=== PATIENT | female | born 1940 | race Caucasian/White ===

== ENCOUNTER → 2016-10-22 | Outpatient (CLI) | payer MEDICARE, BC ==
[~2016-10-22] MED LIST: AMOXICILLIN 50500 MG PO; ASPIRIN E.C. 8181 MG PO; CALCIUM 500 + D1 TA1 PO; CARDIZEM CD 18180 MG PO; COQ(10)1010 MG PO; CORTISPORIN EAR10 M1 OT; FISH OIL CONC1000 MG PO; FISH OIL CONCEN1 SG1 PO; GLUCOSAMINE & C1 CA1 PO; LIPITOR 40MG TA40 MG PO; LUTEIN6 MG; MULTIPLE VITAMI1 TAB PO; NEXIUM 40MG40 MG PO; PRAVACHOL 40MG40 MG PO; PREDNISONE20 MG PO; PREMARIN 0.60.625 M1 PO; PROMETRIUM100 MG PO; VITAMIN D31000 IU PO
== END ==
LOC: MC.RAD 10:58
DX: Z12.31 Encounter for screening mammogram for malignant neoplasm of breast (principal)

== ENCOUNTER → 2018-03-30 | Outpatient (CLI) | payer MEDICARE, BC ==
[~2018-03-30] MED LIST changes: +CEFTIN 250250 MG/TAB PO; +COENZYME Q-10100 M1 PO; -COQ(10)1010 MG PO; +ELIQUIS 5MG PO; -FISH OIL CONCEN1 SG1 PO; +FISH OIL CONCEN1 SG2 PO; +MULTAQ400 MG PO
== END ==
LOC: MC.RAD 09:17
DX: Z12.31 Encounter for screening mammogram for malignant neoplasm of breast (principal)

== ENCOUNTER → 2018-07-29 | Outpatient (CLI) | payer MEDICARE, BC | LOC: COL.VAS 09:59 | DX: I50.22 Chronic systolic (congestive) heart failure (principal); I27.0 Primary pulmonary hypertension; I48.91 Unspecified atrial fibrillation; I08.2 Rheumatic disorders of both aortic and tricuspid valves ==

== ENCOUNTER → 2020-03-14 | Outpatient (CLI) | payer MEDICARE, BC | LOC: COL.CARD 01-17 10:00 | DX: G51.4 Facial myokymia (principal) ==

== ENCOUNTER → 2020-10-15 | Outpatient (CLI) | payer MEDICARE, BC | LOC: MC.RAD 11:04 | DX: Z12.31 Encounter for screening mammogram for malignant neoplasm of breast (principal) ==

== ENCOUNTER 2021-06-25 07:33 | Day surgery (SDC) | payer MEDICARE, BC ==
[~2021-06-25] VITALS: Ht 157.5 cm; Wt 77.7 kg
[2021-06-25 08:18] VITALS: BP 141/75; PULSE 69; TEMP 97.1
[2021-06-25] MEDS ORDERED: ELIQUIS 2.5 PO (08:23)
[2021-06-25] MEDS ORDERED: ASPIRIN E.C. 8181 MG PO (08:25)
[2021-06-25] MEDS ORDERED: NATURE'S BLE1000 MCG (08:25)
[2021-06-25] MEDS ORDERED: CALCIUM 600MG+D1 TAB PO (08:26)
[2021-06-25] MEDS ORDERED: CARTIA XT120 MG PO (08:26)
[2021-06-25] MEDS ORDERED: THE MEDICINE S200 M2 PO (08:29)
[2021-06-25] MEDS ORDERED: OMEGA-3 1000 MG1 CAP PO (08:30)
[2021-06-25] MEDS ORDERED: CHONDROITIN/GLU1 SGL (08:31)
[2021-06-25] MEDS ORDERED: LUTEIN20 M1 PO (08:31)
[2021-06-25] MEDS ORDERED: [UNRECOGNIZED DRUG - OTHER] OU (08:32)
[2021-06-25 09:20] VITALS: BP 148/73; PULSE 69; TEMP 97.5
--- NOTE | 2021-06-25 09:20 | NUR ---
pt to [facility] via cart from endo room having EGD and Colonoscopy. pt is awake and alert, walked to chair, has no c/o, call light in reach, took drink and snack
[2021-06-25 09:35] VITALS: BP 150/78; PULSE 60
--- NOTE | 2021-06-25 09:35 | NUR ---
con't same, sits up in chair, Dr into talk with pt on results of procedures
[2021-06-25 09:50] VITALS: BP 155/81; PULSE 67
--- NOTE | 2021-06-25 10:00 | NUR ---
iv d'cd intact, reviewed discharge inst. with pt on diet, activity and followup, pt to avoid hot foods for 4 hours with verbal understanding. pt dressed self up in room and discharged at 1020 via w/c to car with mary ann
== END 2021-06-25 10:40 | disposition home or self-care (01) ==
LOC: SDCO 07:33
DX: Z12.11 Encounter for screening for malignant neoplasm of colon (principal); D12.6 Benign neoplasm of colon, unspecified; K29.30 Chronic superficial gastritis without bleeding; K21.9 Gastro-esophageal reflux disease without esophagitis; K44.9 Diaphragmatic hernia without obstruction or gangrene; K64.0 First degree hemorrhoids; K57.30 Diverticulosis of large intestine without perforation or abscess without bleeding; I48.91 Unspecified atrial fibrillation; I10 Essential (primary) hypertension; I48.0 Paroxysmal atrial fibrillation; I48.3 Typical atrial flutter; E66.9 Obesity, unspecified; Z79.899 Other long term (current) drug therapy; Z86.010 Personal history of colon polyps; Z85.44 Personal history of malignant neoplasm of other female genital organs; Z68.39 Body mass index [BMI] 39.0-39.9, adult
CPT/HCPCS: J2704; J7030

== ENCOUNTER 2021-07-10 11:01 | Inpatient (IN) | payer MEDICARE, BC ==
[~2021-07-10] VITALS: Ht 154.9 cm; Wt 82.1 kg
[~2021-07-10 11:01] MED LIST changes: +CALCIUM 600MG+D1 TAB PO; +CARTIA XT120 MG PO; +CHONDROITIN/GLU1 SGL; +ELIQUIS 2.5 PO; +LUTEIN20 M1 PO; +NATURE'S BLE1000 MCG; +OMEGA-3 1000 MG1 CAP PO; +THE MEDICINE S200 M2 PO; +[UNRECOGNIZED DRUG - OTHER] OU
[2021-07-10 11:30] LABS: BASO # 0.1 K/mm3 (0.0-0.2); BASO % 0.8 % (0.0-2.0); EOS # 0.2 K/mm3 (0.0-0.7); EOS % 1.5 % (0.0-4.0); GRAN # 5.6 K/mm3 (1.4-6.5); HEMATOCRIT 47.4 % (37.0-47.0); HEMOGLOBIN 15.5 g/dl (12.5-16.0); LYMPH # 3.9 K/mm3 (1.2-3.4); LYMPH % 37.5 % (20.0-51.0); MEAN CELL VOLUME 92 fl (80.0-100.0); MEAN CORPUSCULAR HEMOGLOBIN 30 pg (27-31); MEAN CORPUSCULAR HGB CONC 33 g/dl (33.0-37.0); MEAN PLATELET VOLUME 10.2 fl (7.4-10.4); MONO # 0.7 K/mm3 (0.1-0.6); PLATELET COUNT 402 K/mm3 (130-400); RED BLOOD COUNT 5.16 M/mm3 (4.10-5.30); REDCELL DISTRIBUTION WIDTH-CV 15.4 % (11.5-14.5)
[2021-07-10 11:34] LABS: INR 1.2 (0.8-3.0); PROTHROMBIN TIME 13.8 SECONDS (9.7-12.8)
[2021-07-10 11:45] LABS: ALBUMIN 4.2 gm/dL (3.4-4.8); BILIRUBIN,TOTAL 0.6 mg/dL (0.2-1.2); CALCIUM 9.9 mg/dL (8.4-10.2); CREATININE, serum 0.84 mg/dL (0.57-1.11); POTASSIUM 4.3 mmol/L (3.5-4.5); TOTAL PROTEIN 7.9 gm/dL (6.2-8.1)
[2021-07-10 11:50] LABS: TROPONIN-I 0.02 ng/mL (0.00-0.033)
[2021-07-11] VITALS (8 sets, daily range): BP systolic 97–149; BP diastolic 43–80; PULSE 58–92; TEMP 97.6–98.2
[2021-07-11 07:09] LABS: CALCIUM 8.8 mg/dL (8.4-10.2); CREATININE, serum 0.77 mg/dL (0.57-1.11); POTASSIUM 3.8 mmol/L (3.5-4.5)
[2021-07-11 07:11] LABS: BASO # 0.1 K/mm3 (0.0-0.2); BASO % 0.7 % (0.0-2.0); EOS # 0.3 K/mm3 (0.0-0.7); EOS % 4.2 % (0.0-4.0); GRAN # 3.9 K/mm3 (1.4-6.5); GRAN % 47.9 % (42.2-75.2); HEMATOCRIT 39.2 % (37.0-47.0); HEMOGLOBIN 12.7 g/dl (12.5-16.0); LYMPH # 3.2 K/mm3 (1.2-3.4); LYMPH % 39.6 % (20.0-51.0); MEAN CELL VOLUME 94 fl (80.0-100.0); MEAN CORPUSCULAR HEMOGLOBIN 30 pg (27-31); MEAN CORPUSCULAR HGB CONC 32 g/dl (33.0-37.0); MEAN PLATELET VOLUME 10.8 fl (7.4-10.4); MONO # 0.6 K/mm3 (0.1-0.6); MONO % 7.5 % (1.7-9.3); PLATELET COUNT 315 K/mm3 (130-400); RED BLOOD COUNT 4.19 M/mm3 (4.10-5.30); REDCELL DISTRIBUTION WIDTH-CV 15.6 % (11.5-14.5)
[2021-07-11] MEDS ORDERED: ELIQUIS 5MG PO (13:48)
[2021-07-11] MEDS ORDERED: NORVASC2.5 MG PO (16:20)
[2021-07-11] MEDS ORDERED: MULTAQ400 MG PO (16:40)
== END 2021-07-11 17:39 | disposition home or self-care (01) | DRG 310 ==
LOC: COL.ER 11:01 → MEDICAL 18:00
PROVIDERS: Physician Assistant; ADMIT Internal Medicine
PROC: 5A2204Z Restoration of Cardiac Rhythm, Single (ICD-10-PCS; principal; 2021-07-11)
DX: I48.0 Paroxysmal atrial fibrillation (principal); I10 Essential (primary) hypertension; E78.5 Hyperlipidemia, unspecified; I08.0 Rheumatic disorders of both mitral and aortic valves; Z91.040 Latex allergy status; Z79.01 Long term (current) use of anticoagulants; Z23 Encounter for immunization
CPT/HCPCS: 99223-AI; 99239; G0378; J2704; J7030

== ENCOUNTER → 2021-09-17 | Outpatient (CLI) | payer MEDICARE, BC ==
[~2021-09-17] MED LIST changes: +NORVASC2.5 MG PO
== END ==
LOC: COL.VAS 11:29
DX: I08.3 Combined rheumatic disorders of mitral, aortic and tricuspid valves (principal); I27.20 Pulmonary hypertension, unspecified

== ENCOUNTER 2022-08-16 10:14 | Inpatient (IN) | payer MEDICARE, BC ==
[2022-08-16] VITALS (19 sets, daily range): BP systolic 103–151; BP diastolic 57–105; PULSE 92–126; TEMP 97.3–98.8
[~2022-08-16] VITALS: Ht 154.9 cm; Wt 77.3 kg
[2022-08-16] MEDS ORDERED: CARDIZEM CD 12120 MG PO (11:04)
[2022-08-16 11:15] LABS: BASO # 0.1 K/mm3 (0.0-0.2); BASO % 0.8 % (0.0-2.0); EOS # 0.2 K/mm3 (0.0-0.7); GRAN # 3.7 K/mm3 (1.4-6.5); GRAN % 47.7 % (42.2-75.2); HEMATOCRIT 43.8 % (37.0-47.0); HEMOGLOBIN 14.7 g/dl (12.5-16.0); LYMPH # 3.3 K/mm3 (1.2-3.4); LYMPH % 42.2 % (20.0-51.0); MEAN CELL VOLUME 90 fl (80.0-100.0); MEAN CORPUSCULAR HEMOGLOBIN 30 pg (27-31); MEAN CORPUSCULAR HGB CONC 34 g/dl (33.0-37.0); MEAN PLATELET VOLUME 10.1 fl (7.4-10.4); MONO # 0.5 K/mm3 (0.1-0.6); MONO % 6.2 % (1.7-9.3); PLATELET COUNT 398 K/mm3 (130-400); RED BLOOD COUNT 4.87 M/mm3 (4.10-5.30); REDCELL DISTRIBUTION WIDTH-CV 14.7 % (11.5-14.5)
[2022-08-16 11:19] LABS: ALANINE AMINOTRANSFERASE 15 U/L (0-55); ALBUMIN 3.9 gm/dL (3.4-4.8); ALKALINE PHOSPHATASE 64 U/L (40-150); ANION GAP 10 mmol/L (7-16); AST,SGOT 7 U/L (5-34); BILIRUBIN,TOTAL 0.6 mg/dL (0.2-1.2); BLOOD UREA NITROGEN 18 mg/dL (10-20); CALCIUM 9.5 mg/dL (8.4-10.2); CARBON DIOXIDE 22 mmol/L (23-31); CHLORIDE 106 mmol/L (98-107); CREATININE, serum 0.92 mg/dL (0.57-1.11); GLUCOSE 143 mg/dL (70-99); POTASSIUM 4.3 mmol/L (3.5-4.5); SODIUM 138 mmol/L (136-145); TOTAL PROTEIN 7.3 gm/dL (6.2-8.1)
[2022-08-16 11:27] LABS: INR 1.4 (0.8-3.0); PROTHROMBIN TIME 16.2 SECONDS (9.7-12.8)
[2022-08-16 11:29] LABS: TROPONIN-I < 0.010 ng/mL (0.00-0.033)
[2022-08-16] MEDS ORDERED: OCUVITE1 TA1 PO (13:43)
[2022-08-16] MEDS ORDERED: ZYRTEC5 MG PO (13:44)
[2022-08-16 19:01] LABS: COLLECTION METHOD CLEAN CATCH
[2022-08-16 19:20] LABS: SQUAMOUS EPITHELIAL 0-2 /hpf (0-10); URINE BACTERIA None Seen /hpf (NONE SEEN); URINE RBC 0-2 /hpf (0-2)
[2022-08-16 19:21] LABS: URINE APPEARANCE Clear (CLEAR/HAZY); URINE BLOOD Negative (NEGATIVE); URINE COLOR Yellow (YELLOW); URINE GLUCOSE Negative (NEGATIVE); URINE KETONE Negative (NEGATIVE); URINE NITRATE Negative (NEGATIVE); URINE PROTEIN(semi-quant) Negative (NEGATIVE); URINE UROBILINOGEN 0.2 E.U/dL (0.2-1.0)
[2022-08-17] VITALS (17 sets, daily range): BP systolic 113–136; BP diastolic 44–86; PULSE 47–124; TEMP 97.4–98.6
[2022-08-17 06:37] LABS: CALCIUM 8.8 mg/dL (8.4-10.2); CREATININE, serum 0.75 mg/dL (0.57-1.11); MAGNESIUM 1.9 mg/dL (1.6-2.6); POTASSIUM 4.1 mmol/L (3.5-4.5)
[2022-08-17 06:38] LABS: BASO # 0.1 K/mm3 (0.0-0.2); BASO % 0.5 % (0.0-2.0); EOS # 0.3 K/mm3 (0.0-0.7); EOS % 2.4 % (0.0-4.0); GRAN # 8.9 K/mm3 (1.4-6.5); GRAN % 69.8 % (42.2-75.2); HEMATOCRIT 41.6 % (37.0-47.0); HEMOGLOBIN 13.4 g/dl (12.5-16.0); LYMPH # 2.6 K/mm3 (1.2-3.4); LYMPH % 20.6 % (20.0-51.0); MEAN CORPUSCULAR HEMOGLOBIN 31 pg (27-31); MEAN CORPUSCULAR HGB CONC 32 g/dl (33.0-37.0); MEAN PLATELET VOLUME 10.2 fl (7.4-10.4); MONO # 0.8 K/mm3 (0.1-0.6); MONO % 6.4 % (1.7-9.3); PLATELET COUNT 337 K/mm3 (130-400); RED BLOOD COUNT 4.39 M/mm3 (4.10-5.30); REDCELL DISTRIBUTION WIDTH-CV 15.1 % (11.5-14.5)
[2022-08-17 06:40] LABS: MEAN CELL VOLUME 95 fl (80.0-100.0)
[2022-08-18] VITALS (15 sets, daily range): BP systolic 116–161; BP diastolic 47–80; PULSE 56–73; TEMP 97.6–98.7
[2022-08-18 06:31] LABS: BASO # 0.1 K/mm3 (0.0-0.2); BASO % 0.6 % (0.0-2.0); EOS # 0.2 K/mm3 (0.0-0.7); EOS % 2.9 % (0.0-4.0); GRAN # 4.5 K/mm3 (1.4-6.5); GRAN % 53.1 % (42.2-75.2); HEMATOCRIT 38.8 % (37.0-47.0); HEMOGLOBIN 12.8 g/dl (12.5-16.0); LYMPH # 2.9 K/mm3 (1.2-3.4); LYMPH % 34.5 % (20.0-51.0); MEAN CELL VOLUME 94 fl (80.0-100.0); MEAN CORPUSCULAR HEMOGLOBIN 31 pg (27-31); MEAN CORPUSCULAR HGB CONC 33 g/dl (33.0-37.0); MEAN PLATELET VOLUME 10.7 fl (7.4-10.4); MONO # 0.7 K/mm3 (0.1-0.6); MONO % 8.8 % (1.7-9.3); PLATELET COUNT 318 K/mm3 (130-400); RED BLOOD COUNT 4.15 M/mm3 (4.10-5.30)
[2022-08-18 06:51] LABS: CALCIUM 8.6 mg/dL (8.4-10.2); CREATININE, serum 0.72 mg/dL (0.57-1.11); POTASSIUM 4.1 mmol/L (3.5-4.5)
[2022-08-18 12:00] LABS: INR 1.4 (0.8-3.0); PROTHROMBIN TIME 16.4 SECONDS (9.7-12.8)
[2022-08-19 03:31] VITALS: BP 138/55; PULSE 64; TEMP 98.4
[2022-08-19 06:31] LABS: BASO # 0.1 K/mm3 (0.0-0.2); BASO % 0.8 % (0.0-2.0); EOS # 0.3 K/mm3 (0.0-0.7); EOS % 4.1 % (0.0-4.0); GRAN # 3.5 K/mm3 (1.4-6.5); GRAN % 47.7 % (42.2-75.2); HEMOGLOBIN 11.6 g/dl (12.5-16.0); LYMPH # 2.9 K/mm3 (1.2-3.4); LYMPH % 38.9 % (20.0-51.0); MEAN CELL VOLUME 95 fl (80.0-100.0); MEAN CORPUSCULAR HEMOGLOBIN 31 pg (27-31); MEAN CORPUSCULAR HGB CONC 32 g/dl (33.0-37.0); MEAN PLATELET VOLUME 11.4 fl (7.4-10.4); MONO # 0.6 K/mm3 (0.1-0.6); MONO % 8.4 % (1.7-9.3); PLATELET COUNT 259 K/mm3 (130-400); RED BLOOD COUNT 3.79 M/mm3 (4.10-5.30); REDCELL DISTRIBUTION WIDTH-CV 15.1 % (11.5-14.5)
[2022-08-19 06:33] LABS: HEMATOCRIT 35.8 % (37.0-47.0)
[2022-08-19 06:46] LABS: CALCIUM 8.6 mg/dL (8.4-10.2); CREATININE, serum 0.75 mg/dL (0.57-1.11); POTASSIUM 4.1 mmol/L (3.5-4.5)
[2022-08-19 07:49] VITALS: BP 151/66; PULSE 64; TEMP 97.6
[2022-08-19 12:09] VITALS: BP 157/70; PULSE 60; TEMP 98.7
[2022-08-19 15:59] VITALS: BP 143/53; PULSE 58; TEMP 97.9
[2022-08-19 19:42] VITALS: BP 149/63; PULSE 61; TEMP 97.7
[2022-08-19 23:28] VITALS: BP 123/52; PULSE 54; TEMP 98.4
[2022-08-20 03:03] VITALS: BP 128/65; PULSE 51; TEMP 98.3
[2022-08-20] MEDS ORDERED: BETAPACE 80MG80 MG PO (07:18)
[2022-08-20 07:20] VITALS: BP 167/57; PULSE 54; TEMP 97.7
== END 2022-08-20 11:07 | disposition home or self-care (01) | DRG 310 ==
LOC: COL.ER 10:14 → MEDICAL 11:35
PROVIDERS: Emergency Medicine; Physician Assistant; ADMIT Hospitalist
PROC: 5A2204Z Restoration of Cardiac Rhythm, Single (ICD-10-PCS; principal; 2022-08-18)
DX: I48.0 Paroxysmal atrial fibrillation (principal); I10 Essential (primary) hypertension; E78.5 Hyperlipidemia, unspecified; E66.9 Obesity, unspecified; I48.92 Unspecified atrial flutter; K21.9 Gastro-esophageal reflux disease without esophagitis; M19.90 Unspecified osteoarthritis, unspecified site; D72.829 Elevated white blood cell count, unspecified; G62.9 Polyneuropathy, unspecified; I08.2 Rheumatic disorders of both aortic and tricuspid valves; Z88.2 Allergy status to sulfonamides; Z88.8 Allergy status to other drugs, medicaments and biological substances; Z91.040 Latex allergy status; Z79.01 Long term (current) use of anticoagulants; Z79.899 Other long term (current) drug therapy; Z23 Encounter for immunization; Z68.32 Body mass index [BMI] 32.0-32.9, adult
CPT/HCPCS: OP; G0378; J0282; J2704; J3475; J7040; J7060

== ENCOUNTER 2022-12-02 10:54 | Observation (INO) | payer MEDICARE, BC ==
[~2022-12-02] VITALS: Ht 152.4 cm; Wt 79.5 kg
[2022-12-02] VITALS (10 sets, daily range): BP systolic 116–150; BP diastolic 44–78; PULSE 47–58; TEMP 97.4–98
[~2022-12-02 10:54] MED LIST changes: +BETAPACE 80MG80 MG PO; +CARDIZEM CD 12120 MG PO; +OCUVITE1 TA1 PO; +ZYRTEC5 MG PO
[2022-12-02 11:21] LABS: BASO # 0.1 K/mm3 (0.0-0.2); BASO % 0.7 % (0.0-2.0); EOS # 0.2 K/mm3 (0.0-0.7); EOS % 1.9 % (0.0-4.0); GRAN # 4.2 K/mm3 (1.4-6.5); GRAN % 52.6 % (42.2-75.2); HEMATOCRIT 49.7 % (37.0-47.0); HEMOGLOBIN 16.4 g/dl (12.5-16.0); LYMPH % 37.6 % (20.0-51.0); MEAN CELL VOLUME 92 fl (80.0-100.0); MEAN CORPUSCULAR HEMOGLOBIN 31 pg (27-31); MEAN CORPUSCULAR HGB CONC 33 g/dl (33.0-37.0); MEAN PLATELET VOLUME 10.5 fl (7.4-10.4); MONO # 0.6 K/mm3 (0.1-0.6); MONO % 7.1 % (1.7-9.3); PLATELET COUNT 338 K/mm3 (130-400); RED BLOOD COUNT 5.38 M/mm3 (4.10-5.30); REDCELL DISTRIBUTION WIDTH-CV 14.9 % (11.5-14.5)
[2022-12-02 11:37] LABS: ALBUMIN 4.4 gm/dL (3.4-4.8); CALCIUM 10.1 mg/dL (8.4-10.2); CREATININE, serum 0.76 mg/dL (0.57-1.11); POTASSIUM 4.6 mmol/L (3.5-4.5); TOTAL PROTEIN 7.9 gm/dL (6.2-8.1)
[2022-12-02 11:48] LABS: BILIRUBIN,TOTAL 0.8 mg/dL (0.2-1.2)
--- NOTE | 2022-12-02 14:25 | NUR ---
PT ADMITTED FROM [facility]. PT ORIENTED TO ROOM AND FLOOR. PT IS SB IN THE 40'S. OTHER VSS. PT DENIES CP OR DIZZINESS. CALL LIGHT GIVEN AND INSTRUCTED TO CALL [facility] ALL NEEDS. FRANCESCO MARCH NOTIFIED OF SB AND ASKED FOR PARAMETERS FOR SOTALOL HOLD DUE TO HEART RATE.
--- NOTE | 2022-12-02 20:00 | NUR ---
Pt sitting in recliner watching tv upon this nurse's entry to room. A&Ox4. PM scheduled meds admin PO w/o difficulty. Shift assessment completed. Respirations are even and unlabored on room air. Heart sounds regular w/ bradycardic rate. Redness noted to mid upper back @ cardioversion pad site. Telemtry in place w/ sinus william rhythm & rate. Abd rounded and soft. Pt reports eczema and has dry spots on both sides of her neck and top of left foot. Pt denies chest pain, palpitations, burning @ pad sites, dyspnea, SOA, lightheadedness, dizziness, or nausea/vomitting. Pt denies any needs. Call light in reach.
[2022-12-03 00:01] VITALS: BP_SYST 132
[2022-12-03 03:58] VITALS: BP 142/59; PULSE 53; TEMP 97.7
[2022-12-03 04:04] VITALS: BP_SYST 142
--- NOTE | 2022-12-03 05:31 | NUR ---
Pt has been monitored throughout night by this nurse. No adverse events over night. Pt has rested soundly w/ eyes closed in bed. Telemetry in place monitoring cardiac activity. Sinus william 53bpm. Respirations even and unlabored. No signs of distress noted. Call light in reach.
--- NOTE | 2022-12-03 07:00 | NUR ---
PT RESTING IN BED. PT STATES SHE FEELS BETTER. PT SHOWING SB ON TELE. VSS. PT HAS CALL LIGHT AND INSTRUCTED TO CALL WITH ALL NEEDS.
[2022-12-03 08:01] VITALS: BP 144/57; PULSE 51; TEMP 97.7
--- NOTE | 2022-12-03 10:03 | NUR ---
SW met with pt for intake. Pt confirms living in [facility] with granddaughter. Pt confirmed [facility] as Shanice Snow (daughter [phone]). Pt reports PCP is Dr. Cao and uses [facility] without any issues. Pt denied o2 and or DME at home. Pt reports having stairs without any issues. Pt confirms insurance on file and DPOA on file. Pt denied any otherissues and/or needs. D/C plans home with granddaughter
[2022-12-03 11:44] VITALS: BP 158/68; PULSE 51; TEMP 98.4
--- NOTE | 2022-12-03 12:46 | NUR ---
Discharge instructions discussed with Pt. This RN called [facility] regarding pts CCTA schedule for tomorrow, regarding whether or not pt is to take her meds prior. Was informed ok to take meds but npo two hours before test. PT updated on above. All questions answered. IV and tele dc'd. Pt awaiting [facility] to arrive for discharge. Instructed pt to call when ready to be wheeled out.
--- NOTE | 2022-12-03 12:48 | NUR ---
Pt wheeled out for discharge.
== END 2022-12-03 13:00 | disposition home or self-care (01) ==
LOC: COL.ER 10:54 → MEDICAL 13:34
PROVIDERS: Emergency Medicine; ADMIT Internal Medicine
DX: I48.91 Unspecified atrial fibrillation (principal); I10 Essential (primary) hypertension; J30.2 Other seasonal allergic rhinitis; Z79.01 Long term (current) use of anticoagulants; Z79.899 Other long term (current) drug therapy
CPT/HCPCS: G0378; J2704